=== PATIENT | female | born 1950 | race Caucasian/White ===

== ENCOUNTER → 2017-12-04 | Outpatient (CLI) | payer MEDICARE ==
[2017-12-04 13:39] LABS: Basophils % (A) 0 %; Eosinophils # (A) 0.1 k/uL (0-0.7); Eosinophils % (A) 1 %; HCT 37.7 % (34.0-46.0); HGB 12.5 gm/dL (11.4-16.0); Lymphocytes # (A) 1.1 k/uL (1.0-4.8); Lymphocytes % (A) 21 %; MCH 28.6 pg (25.0-35.0); MCHC 33.2 g/dL (31.0-37.0); MCV 86.1 fL (80.0-100.0); Mean Platelet Volume 6.8; Monocytes # (A) 0.3 k/uL (0-1.0); Monocytes % (A) 5 %; Neutrophils # (A) 3.7 k/uL (1.3-7.7); Neutrophils % (A) 71 %; Platelet Count 371 k/uL (150-450); RBC 4.38 m/uL (3.80-5.40); RDW 13.8 % (11.5-15.5); WBC 5.3 k/uL (3.8-10.6)
[2017-12-04 13:58] LABS: Albumin 3.8 g/dL (3.5-5.0); Appearance,Urine Clear (Clear); Bacteria,Urine Rare /hpf; Bilirubin,Urine Negative (Negative); Blood,Urine Small (Negative); C Reactive Protein 28.5 mg/L (<10.0); Calcium 9.7 mg/dL (8.4-10.2); Color,Urine Yellow; Glucose,Urine (UA) Negative (Negative); Ketones,Urine Negative (Negative); Leukocyte Esterase,Urine Negative (Negative); Mucus,Urine Rare /hpf; Nitrite,Urine Negative (Negative); Potassium 4.6 mmol/L (3.5-5.1); Protein,Urine Negative (Negative); RBC,Urine 16 /hpf (0-5); Specific Gravity,Urine 1.018 (1.001-1.035); Squamous Epithelial Cell,Urine 2 /hpf (0-4); Total Bilirubin 0.3 mg/dL (0.2-1.3); Total Protein 6.6 g/dL (6.3-8.2); Urobilinogen,Urine <2.0 mg/dL (<2.0); WBC,Urine 1 /hpf (0-5)
[2017-12-04 14:12] LABS: T4, Free (Free Thyroxine) 1.23 ng/dL (0.78-2.19)
[2017-12-04 14:30] LABS: Erythrocyte Sedimentation Rate 31 mm/hr (0-20)
[2017-12-04 19:52] LABS: Protein, Total 6.6 g/dL (6.2-8.2)
[2017-12-04 19:53] LABS: Rheumatoid Factor 50 IU/mL (0-15)
[2017-12-04 20:02] LABS: Vitamin D 25 Hydroxy 24.4 ng/mL (30.0-100.0)
[2017-12-04 20:17] LABS: Cardiolipin Ab IgG Interp NEGATIVE (NEGATIVE); Cardiolipin Ab IgM Interp NEGATIVE (NEGATIVE); Cardiolipin IgM Antibody 1.1 U/mL; Centromere Antibody Interp NEGATIVE (NEGATIVE); Cyclic Citrullinated Pep IgG POSITIVE (NEGATIVE); DNA Double-Stranded NEGATIVE (NEGATIVE); RNP <0.2 AI; Scleroderma SC-70 Ab <0.2 AI
[2017-12-04 22:18] LABS: Hepatitis C IgG Antibody Non-Reactive (Non-Reactive)
[2017-12-05 10:23] LABS: HLA B27 NEGATIVE
[2017-12-05 12:11] LABS: APTT 45 Sec(s) (<43); APTT 1:1 Mix 40 Sec(s) (<43); DRVVT 1:1 Mix 44 Sec(s) (<44); Dilute Russell Viper Venom 51 Sec(s) (<44)
[2017-12-05 14:07] LABS: C-ANCA <1:20 Titer (<1:20); P-ANCA <1:20 Titer (<1:20)
[2017-12-05 15:24] LABS: Angiotensin-1 Converting Enz. 46 U/L (8-52)
[2017-12-06 07:21] LABS: Aldolase 3.5 U/L (1.2-7.6)
== END | disposition home or self-care (01) ==
LOC: LABWHC1 12:51
PROVIDERS: ATTEND Internal Medicine Rheumatology
DX: M06.89 Other specified rheumatoid arthritis, multiple sites (principal)
CPT/HCPCS: 36415; 80053; 81001; 82085; 82164; 82306; 82550; 83883; 84165; 84439; 84443; 84550; 85025; 85613; 85652; 85730; 86038; 86140; 86147; 86160; 86162; 86200; 86225; 86235; 86255; 86334; 86431; 86803; 86812; 87340

== ENCOUNTER → 2020-05-12 | Outpatient (CLI) | payer MEDICARE ==
--- NOTE | 2020-05-15 17:29 | BD ---
EXAMINATION TYPE: Axial Bone Density DATE OF EXAM: 05/12/2020 COMPARISON: NONE CLINICAL HISTORY: Postmenopausal screening Height: 5 FT 6 1/2 IN Weight: 163 FRAX RISK QUESTIONS: Alcohol (3 or more units per day): NO Family History (Parent hip fracture): NO Glucocorticoids (More than 3mos): NO (Ex: prednisone, prednisolone, methylprednisolone, dexamethasone, and hydrocortisone). History of Fracture in Adulthood: YES Secondary Osteoporosis: 1. Type 1 Diabetes: NO 2. Hyperthyroidism: NO 3. Menopause before 45: NO 4. Malnutrition: NO 5. Chronic liver disease: NO Rheumatoid Arthritis: YES Current Tobacco Use: NO RISK FACTORS HISTORY OF: Family History of Osteoporosis: UNSURE Active: YES Postmenopausal woman: AGE 50-53 Lost more than 2 inches in height since high school: NO MEDICATIONS: Thyroid Medications: YES Which medication: LEVOTHYROXINE How Long: APPROX 4-5 YEARS Additional Medications: LEVOTHYROXINE, METHOTREXATE, Additional History: EXAM MEASUREMENTS: Bone mineral densitometry was performed using the [employer] System. Bone mineral density as measured about the Lumbar spine is: ----- L1-L4(G/cm2): 1.147 T Score Values are as follows: ----- L2: -1.0 ----- L3: -0.7 ----- L4: -0.5 ----- L1-L4: -0.3 BASELINE Bone mineral density about the R hip (g/cm2): 0.677 Bone mineral density about the L hip (g/cm2): 0.670 T Score values are as follows: -----R Neck: -2.6 -----L Neck: -2.6 -----R Total: -2.5 -----L Total: -2.4 BASELINE IMPRESSION: Osteoporosis (T Score less than -2.5). There is increased fracture risk and therapy is usually indicated based on age. Re-Screen 1-2 years. NOTE: T-SCORE=SD OF THE YOUNG ADULT MEAN.
--- NOTE | 2020-05-16 11:50 | MM ---
Reason for exam: screening (asymptomatic). Last mammogram was performed 1 year and 11 months ago. History: Patient is postmenopausal. Physical Findings: A clinical breast exam by your physician is recommended on an annual basis and results should be correlated with mammographic findings. MG 3D Screening Mammo W/Cad Bilateral CC and MLO view(s) were taken. Prior study comparison: June 10, 2018, bilateral MG 3d diag mammo w/cad [facility]. December 15, 2017, mammogram, performed at [facility]. There are scattered fibroglandular densities. ASSESSMENT: Negative, BI-RAD 1 RECOMMENDATION: Routine screening mammogram of both breasts in 1 year.
== END | disposition home or self-care (01) ==
LOC: RADMAMWWP 14:26
PROVIDERS: ATTEND Family Medicine
DX: Z12.31 Encounter for screening mammogram for malignant neoplasm of breast (principal); M81.0 Age-related osteoporosis without current pathological fracture
CPT/HCPCS: 77063; 77067; 77080

== ENCOUNTER 2020-08-13 13:55 | Emergency (ER) | payer MEDICARE, OTHER ==
[2020-08-13 14:07] VITALS: RESP 18; TEMP 97.8
[2020-08-13] MEDS ORDERED: DIPH,PERTUS(ACELL)TETVAC-LF 0.5 ML VIAL IM ONE (14:21)
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
--- NOTE | 2020-08-13 15:19 | XR ---
RESULT: HISTORY: pain TECHNIQUE: 3 views of the right knee. 2 views of the right tibia and fibula. COMPARISON: None. FINDINGS: There is no acute fracture or dislocation. The visualized joint spaces are preserved. IMPRESSION: No acute osseous abnormality of the right knee, tibia or fibula.
--- NOTE | 2020-08-13 15:20 | XR ---
EXAMINATION TYPE: XR chest 1V portable DATE OF EXAM: 08/13/2020 COMPARISON: NONE HISTORY: Pain status post fall. TECHNIQUE: Single frontal view of the chest is obtained. FINDINGS: There is no focal air space opacity, pleural effusion, or pneumothorax seen. The cardiac silhouette size is within normal limits. The osseous structures are intact. IMPRESSION: No acute process.
--- NOTE | 2020-08-13 16:14 | CT ---
EXAMINATION TYPE: CT thoracic spine wo con DATE OF EXAM: 08/13/2020 COMPARISON: Earlier same day CT cervical spine. HISTORY: abnormal cspine CT DLP: 907.8 mGycm Automated exposure control for dose reduction was used. FINDINGS: There is no acute fracture or subluxation of the thoracic spine. The vertebral body and disc heights are grossly maintained. No significant spondylolisthesis. There is multilevel mild thoracic spondylos is. No significant paraspinal soft tissue abnormality. IMPRESSION: NO ACUTE FRACTURE OR SUBLUXATION OF THE THORACIC SPINE. Previously questioned T1 spine fracture, consistent with artifact.
[2020-08-13 16:53] VITALS: BP 142/77; PULSE 88
== END 2020-08-13 16:57 | disposition home or self-care (01) ==
LOC: EC 13:55
DX: S09.90XA Unspecified injury of head, initial encounter (principal); M25.561 Pain in right knee; M06.9 Rheumatoid arthritis, unspecified; Z23 Encounter for immunization; Z79.890 Hormone replacement therapy; Z79.899 Other long term (current) drug therapy; V43.52XA Car driver injured in collision with other type car in traffic accident, initial encounter; Y92.410 Unspecified street and highway as the place of occurrence of the external cause; Y99.0 Civilian activity done for income or pay
CPT/HCPCS: 70450; 71045; 72125; 72128; 90471; 90715; 99284

== ENCOUNTER → 2020-08-14 | Outpatient (CLI) | payer OTHER ==
--- NOTE | 2020-08-14 13:54 | XR ---
EXAMINATION TYPE: XR shoulder complete LT, XR humerus LT DATE OF EXAM: 08/14/2020 CLINICAL HISTORY: Injury with pain. TECHNIQUE: Three views of the left shoulder are obtained. 2 views left humerus. COMPARISON: None. FINDINGS: There is no acute fracture/dislocation evident in the left shoulder. Mmoqmqjk-qe-kvdmxz na rrowing of acromioclavicular joint. Distal acromion morphology unremarkable. Gaxj-hi-rnjyxryq narrowi ng glenohumeral joint with small spur inferior medial humeral head. The visualized ribs are intact a nd unremarkable. Images of left wrist show overlying clothing material. No acute fracture or dislocation. Visualized p ortion of the left elbow joint is unremarkable. IMPRESSION: There is no acute fracture or dislocation in the left humerus or shoulder.
--- NOTE | 2020-08-14 13:55 | XR ---
EXAMINATION TYPE: XR elbow complete RT DATE OF EXAM: 08/14/2020 CLINICAL HISTORY: Pain after injury. TECHNIQUE: Frontal, lateral and oblique images of the right elbow are obtained. COMPARISON: None FINDINGS: There is no acute fracture/dislocation evident in the right elbow. No abnormal fat pad si gns are seen. The overlying soft tissue appears unremarkable. IMPRESSION: There is no acute fracture or dislocation in the right elbow.
--- NOTE | 2020-08-14 13:56 | XR ---
EXAMINATION TYPE: XR pelvis AP view DATE OF EXAM: 08/14/2020 CLINICAL HISTORY: Pain after injury. TECHNIQUE: A single AP view of the pelvis is obtained. COMPARISON: None. FINDINGS: There is no acute fracture/dislocation evident in the pelvis. Symmetric mild to moderate a xial joint space loss in both hips with mild acetabular spurring. Sacroiliac joints are symmetric. Pu bic symphysis is intact. The overlying soft tissue appears unremarkable. IMPRESSION: There is no acute fracture or dislocation in the pelvis.
--- NOTE | 2020-08-14 13:58 | XR ---
EXAMINATION TYPE: XR lumbar spine 2 or 3V DATE OF EXAM: 08/14/2020 CLINICAL HISTORY: Injury with pain TECHNIQUE: Frontal and lateral images of the lumbar spine are obtained. COMPARISON: None FINDINGS: There are 5 lumbar type vertebral bodies identified. There is underlying dextroconvex scol iosis centered near lumbosacral junction. There is severe disc space narrowing with endplate sclerosi s at L5-S1 level. There is additional vhhi-uc-qzszqaqr multilevel disc space narrowing with mild to m oderate multilevel anterior lateral spurring. More Prominent spurring is noted at the L1-L2 level ant eriorly. Overlying soft tissue is unremarkable. Multilevel facet arthropathy in the lower lumbar spin e. No acute fracture or dislocation is seen. IMPRESSION: No acute fracture or dislocation is seen in the lumbar spine.
== END | disposition home or self-care (01) ==
LOC: RADXRMAIN 13:11
PROVIDERS: ATTEND Emergency Medicine
DX: S30.0XXA Contusion of lower back and pelvis, initial encounter (principal); S40.012A Contusion of left shoulder, initial encounter; S50.01XA Contusion of right elbow, initial encounter
CPT/HCPCS: 72100; 72170

== ENCOUNTER → 2021-01-08 | Outpatient (CLI) | payer MEDICARE ==
--- NOTE | 2021-01-08 15:24 | US ---
EXAMINATION TYPE: US thyroid st tissue head/neck DATE OF EXAM: 01/08/2021 COMPARISON: NONE CLINICAL HISTORY: E04.1 thyroid nodule. Patient states that she was under the impression that they only removed a nodule from the right thyro id, not the entire right side. GLAND SIZE: Right Lobe: appears removed Left Lobe: 5.0 x1.6 x 1.8 cm Overall Parenchyma: grossly heterogeneous Isthmus Thickness: not visualized NODULES RIGHT: # of nodules measured on right: LEFT: # of nodules measured on left: 1 1. 1.1 x 0.7 x 1.8 cm, mid, solid or almost completely solid, isoechoic nodule, which is wider than tall, with smooth margins, without echogenic foci. ISTHMUS: # of nodules measured in the isthmus: 0 Bilateral neck scanned, no evidence of lymphadenopathy. IMPRESSION: 1. Status post right thyroid lobectomy. 2. 1.1 cm left thyroid nodule, as described. 2017 ACR TI-RADS LEVEL: TR-RADS 3 - Mildly Suspicious: Follow if > 1.5 cm, FNA if > 2.5 cm *Highest TI-RADS level nodule reported
== END | disposition home or self-care (01) ==
LOC: RADUSWWP 09:12
PROVIDERS: ATTEND Family Medicine
DX: E04.1 Nontoxic single thyroid nodule (principal); E89.0 Postprocedural hypothyroidism
CPT/HCPCS: 76536

== ENCOUNTER → 2022-04-25 | Outpatient (CLI) | payer MEDICARE ==
--- NOTE | 2022-04-26 08:50 | MM ---
Reason for Exam: Screening (asymptomatic). Last mammogram was performed 1 year(s) and 11 month(s) ago. Patient History: Menarche at age 10. First Full-Term at age 21. Postmenopausal. Risk Values: Gisel 5 year model risk: 1.6%. NCI Lifetime model risk: 3.7%. Prior Study Comparison: 12/15/2017 Screening Mammogram, [facility]. 06/10/2018 Bilateral Diagnostic Mammogram, [facility]. 05/12/2020 Bilateral Screening Mammogram, [facility]. Tissue Density: There are scattered fibroglandular densities. Findings: Analyzed By CAD. Multiple bilateral skin lesions redemonstrated. Small benign-appearing bilateral axillary lymph nodes again seen. There is no suspicious new group of microcalcifications or new suspicious mass in either breast. Overall Assessment: Benign, BI-RAD 2 Management: Screening Mammogram of both breasts in 1 year. A clinical breast exam by your physician is recommended on an annual basis and results should be correlated with mammographic findings. Electronically signed and approved by: Lam Arora M.D.
== END | disposition home or self-care (01) ==
LOC: RADMAMWWP 09:18
PROVIDERS: ATTEND Family Medicine
DX: Z12.31 Encounter for screening mammogram for malignant neoplasm of breast (principal); Z78.0 Asymptomatic menopausal state
CPT/HCPCS: 77063; 77067

== ENCOUNTER → 2022-06-04 | Outpatient (CLI) | payer MEDICARE ==
--- NOTE | 2022-06-05 07:39 | BD ---
EXAMINATION TYPE: Axial Bone Density DATE OF EXAM: 06/04/2022 COMPARISON: 05/12/2020 CLINICAL HISTORY: 72 years old Female. ICD-10 CODE: M81.0 age related osteoporosis Height: 65 Weight: 160 FRAX RISK QUESTIONS: Family History (Parent hip fracture): NO History of Fracture in Adulthood: YES FOOT 2013 Secondary Osteoporosis: NO Rheumatoid Arthritis: YES Current Tobacco Use: NO RISK FACTORS HISTORY OF: Family History of Osteoporosis: YES Active: YES Diet low in dairy products/other sources of calcium: NO Postmenopausal woman: YES 50 Lost more than 2 inches in height since high school: YES MEDICATIONS: Thyroid Medications:YES Which medication: Levothyroxine How Lon YEARS Osteoporosis Medications: YES Which medication: Prolia How Lon Additional Medications: YES CALCIUM, VIT D , Rheumatoid Arthritis meds Additional History: YES METHOTREXATE EXAM MEASUREMENTS: Bone mineral densitometry was performed using the [employer] System. Bone mineral density as measured about the Lumbar spine is: ----- L1-L4(G/cm2): 1.193 T Score Values are as follows: ----- L1: 1.3 ----- L2: -0.8 ----- L3: -0.2 ----- L4: 0.0 ----- L1-L4: 0.1 Bone mineral density has: Increased 4% since study of: 05/12/2020 Bone mineral density about the R hip (g/cm2): 0.698 Bone mineral density about the L hip (g/cm2): 0.704 T Score values are as follows: -----R Neck: -2.5 -----L Neck: -2.7 -----R Total: -2.5 -----L Total: -2.4 Bone mineral density has:A CHANGE OF 0.0% since study of: 05/12/2020 FRAX%s: The graph provided illustrates a 33.7% chance for a major osteoporotic fx and a 12.1% chance for the hips probability for fx in 10 years time. IMPRESSION: Osteoporosis (T Score less than -2.5). There is increased fracture risk and therapy is usually indicated based on age. Re-Screen 1-2 years. NOTE: T-SCORE=SD OF THE YOUNG ADULT MEAN.
== END | disposition home or self-care (01) ==
LOC: RADBDWWP 15:21
PROVIDERS: ATTEND Internal Medicine Rheumatology
DX: M81.0 Age-related osteoporosis without current pathological fracture (principal)
CPT/HCPCS: 77080

== ENCOUNTER → 2023-10-28 | Outpatient (CLI) | payer MEDICARE ==
--- NOTE | 2023-10-30 13:01 | MM ---
Reason for Exam: Screening (asymptomatic). Last mammogram was performed 1 year(s) and 7 month(s) ago. Patient History: Menarche at age 10. First Full-Term at age 21. Postmenopausal. Risk Values: Gisel 5 year model risk: 1.6%. NCI Lifetime model risk: 3.4%. Prior Study Comparison: 06/10/2018 Bilateral Diagnostic Mammogram, [facility]. 05/12/2020 Bilateral Screening Mammogram, [facility]. 04/25/2022 Bilateral MG 3D screening mammo w/cad, [facility]. Tissue Density: There are scattered areas of fibroglandular density. Findings: Analyzed By CAD. There is no suspicious group of microcalcifications or new suspicious mass in either breast. Overall Assessment: Negative, BI-RAD 1 Management: Screening Mammogram of both breasts in 1 year. . Patient should continue monthly self-breast exams. A clinical breast exam by your physician is recommended on an annual basis. This exam should not preclude additional follow-up of suspicious palpable abnormalities. Note on Gisel scores and lifetime risk: 1. A Gisel score greater than 3% is considered moderate risk. If this is the case, consider specialist referral to assess eligibility for a risk reducing agent. 2. If overall lifetime risk for the development of breast cancer is 20% or higher, the patient may qualify for future screening with alternating mammogram and breast MRI. Electronically signed and approved by: Terry Ortiz M.D. Radiologis
== END | disposition home or self-care (01) ==
LOC: RADMAMWWP 15:28
PROVIDERS: ATTEND Family Medicine
DX: Z12.31 Encounter for screening mammogram for malignant neoplasm of breast (principal); Z78.0 Asymptomatic menopausal state
CPT/HCPCS: 77063; 77067

== ENCOUNTER → 2024-08-13 | Outpatient (CLI) | payer MEDICARE ==
--- NOTE | 2024-08-13 10:13 | BD ---
EXAMINATION TYPE: Axial Bone Density DATE OF EXAM: 08/13/2024 CLINICAL HISTORY: 74 years old Female. ICD-10 CODE: M81.0 AGE RELATED OSTEOPOROSIS , Additional Hist ory: Height: 65 Weight: 149.3 FRAX RISK QUESTIONS: Alcohol (3 or more units per day): no Family History (Parent hip fracture): no Glucocorticoids (More than 3mos): no (Ex: prednisone, prednisolone, methylprednisolone, dexamethasone, and hydrocortisone). History of Fracture in Adulthood: yes Secondary Osteoporosis: 1. Type 1 Diabetes: no 2. Hyperthyroidism: no 3. Menopause before 45: no 4. Malnutrition: no 5. Chronic liver disease: no Rheumatoid Arthritis: yes Current Tobacco Use: no RISK FACTORS HISTORY OF: Surgery to Spine/Hip(right/left)/Wrist (right/left): no MEDICATIONS: Thyroid Medications: levothyroxine How Long: since 2014 Osteoporosis Medications: Prolia How Long: EXAM MEASUREMENTS: Bone mineral densitometry was performed using the [employer] System. Bone mineral density as measured about the Lumbar spine is: ----- L1-L4(G/cm2): 1.189 T Score Values are as follows: ----- L1: 0.9 ----- L2: -0.6 ----- L3: -0.4 ----- L4: 0.3 ----- L1-L4: 0.1 Z Score Values are as follows: ----- L1: 2.6 ----- L2: 1.0 ----- L3: 1.3 ----- L4: 1.9 ----- L1-L4: 1.8 Bone mineral density has: decreased -0.3 % since study of: 06.04.2022 Bone mineral density about the R hip (g/cm2): 0.682 Bone mineral density about the L hip (g/cm2): 0.690 T Score values are as follows: -----R Neck: -2.4 -----L Neck: -2.6 -----R Total: -2.6 -----L Total: -2.5 Z Score values are as follows: -----R Neck: -0.5 -----L Neck: -0.7 -----R Total: -0.8 -----L Total: -0.8 Bone mineral density has: decreased -2.1 % since study of: 11.8.2021 FRAX%s: The graph provided illustrates a 34.6% chance for a major osteoporotic fx and a 12.7% chance for the hips probability for fx in 10 years time. IMPRESSION: Osteoporosis (T Score less than -2.5) femoral neck level left hip remains present. There is increased fracture risk and therapy is usually indicated based on age. Re-Screen 1-2 years. NOTE: T-SCORE=SD OF THE YOUNG ADULT MEAN. [facility], , 08/13/2024 10:10 AM
== END | disposition home or self-care (01) ==
LOC: RADBDWWP 09:09
PROVIDERS: ATTEND Internal Medicine Rheumatology
DX: M81.0 Age-related osteoporosis without current pathological fracture (principal)
CPT/HCPCS: 77080